=== PATIENT | female | born 1955 | race Hispanic/Latino ===

== ENCOUNTER 2017-09-12 09:02 | Day surgery (SDC) | payer BC ==
[2017-08-31 12:47] VITALS: BMI 25.7
[2017-09-12] MEDS ORDERED: Propofol 10 mg/ml Inj (20 ML) ONE ×2 (11:19→11:44)
[2017-09-12] MEDS ORDERED: Sodium Chloride 0.9% 1,000 ML IV SCH (12:15)
[2017-09-12 13:42] VITALS: BP 131/81; PULSE 84; RESP 14; TEMP 97.4; O2SAT 99
== END 2017-09-12 14:10 | disposition home or self-care (01) ==
LOC: ENDO 09:02
PROVIDERS: ATTEND Internal Medicine Gastroenterology
DX: K50.00 Crohn's disease of small intestine without complications (principal); K64.8 Other hemorrhoids; K63.3 Ulcer of intestine
CPT/HCPCS: 45380; 88305; J2704; J7040 ×2

== ENCOUNTER 2018-07-05 10:24 | Outpatient (CLI) | payer BC | END 2018-07-05 10:25 | disposition home or self-care (01) | LOC: RAD 10:24 ==